=== PATIENT | male | born 1990 | race Caucasian/White ===

== ENCOUNTER 2017-03-23 13:00 | Emergency (ER) | payer SELFPAY ==
[2017-03-23] MEDS ORDERED: CEPHALEXIN 500 MG CAPSULE PO ONE (14:41)
--- NOTE | 2017-03-23 14:41 | ER Document Report ---
ED Skin Rash/Insect Bite/Abscs - General Chief Complaint: Abscess Stated Complaint: POSSIBLE SPIDER BITE Time Seen by Provider: 03/23/17 14:24 TRAVEL OUTSIDE OF THE [place] IN LAST 30 DAYS: No - HPI Patient complains to provider of: Skin rash/lesion Onset: Other - 5 days ago Onset/Duration: Gradual Skin Character: Other - cellulitis with central wound, patient has been squeezing it to get fluid out - Related Data Allergies/Adverse Reactions: tramadol [From [facility]] Allergy (Verified 03/23/17 13:26) Past Medical History - Social History Smoking Status: Current Every Day Smoker Family History: Reviewed & Not Pertinent Renal/ Medical History: Denies: Hx Peritoneal Dialysis Review of Systems - Review of Systems Constitutional: No symptoms reported Skin: See HPI -: Yes All other systems reviewed and negative Physical Exam - Vital signs Vitals: Temp Pulse Resp BP Pulse Ox 98.6 F 80 16 111/64 100 03/23/17 13:27 03/23/17 13:27 03/23/17 13:27 03/23/17 13:27 03/23/17 13:27 - General General appearance: Appears well, Alert In distress: None - Genitourinary Inspection: Normal Tenderness: Nontender Cremasteric reflex: Normal Scrotum: Normal - Skin Location of irregularity: Abdomen - cellulitis suprapubic area with minimal indurtion no fluctuance, abscess Course - Re-evaluation Re-evalutation: 03/23/17 16:45 Patient is a 26-year-old male who is hemodynamic stable, no acute distress afebrile. No evidence of abscess. Will treat for cellulitis. Patient was given since symptoms redirect return to the emergency department. - Vital Signs Vital signs: Temp Pulse Resp BP Pulse Ox 98.6 F 80 18 110/60 100 03/23/17 13:27 03/23/17 13:27 03/23/17 15:30 03/23/17 15:30 03/23/17 15:30 Discharge - Discharge Clinical Impression: Balanitis Cellulitis Qualifiers: Site of cellulitis: trunk Site of cellulitis of trunk: abdominal wall Qualified Code(s): L03.311 - Cellulitis of abdominal wall Condition: Good Disposition: HOME, SELF-CARE Instructions: Cephalexin ([facility]), Balanitis ([facility]) Prescriptions: Cephalexin Monohydrate [Keflex 500 mg Capsule] 500 mg PO QID #20 capsule Clotrimazole 1 applic TP BID #1 cream.gm. Referrals: [facility] [NO LOCAL MD] - Follow up as needed
[2017-03-23 15:31] VITALS: BP 110/60
== END 2017-03-23 15:31 | disposition home or self-care (01) ==
LOC: ER 13:00
DX: L03.311 Cellulitis of abdominal wall (principal); N48.1 Balanitis; F17.200 Nicotine dependence, unspecified, uncomplicated; Z88.5 Allergy status to narcotic agent
CPT/HCPCS: 99282